=== PATIENT | female | born 1985 | race Caucasian/White ===

== ENCOUNTER 2019-12-17 19:53 | Emergency (ER) | payer OTHER ==
[~2019-12-17] VITALS: Ht 165.1 cm; Wt 68.0 kg
--- NOTE | 2019-12-17 20:56 | NUR ---
poison control case# [id number] recommends cmp, blood alcohol, watch for 6 hours.
[2019-12-17 20:59] LABS: ALKALINE PHOSPHATASE 46 IU/L (46-116); ASPARTATE AMINO TRANSFERASE 13 U/L (10-37); BILIRUBIN,TOTAL 0.3 MG/DL (0.1-1.0); BLOOD UREA NITROGEN 0 MG/DL (7-18); ETHANOL 0.133 GM/DL (0.0-0.010); TOTAL CARBON DIOXIDE 17.7 MMOL/L (24-32)
[2019-12-17 21:14] LABS: BASOPHILS # (AUTO) 0.1 X10'3 (0-0.2); BASOPHILS % (AUTO) 0.7 % (0-1); EOSINOPHILS % (AUTO) 0.1 % (0-6); HEMATOCRIT 38.6 % (35.0-45.0); HEMOGLOBIN 12.8 g/dl (12.0-16.0); LYMPHOCYTES # (AUTO) 1.6 X10'3 (1.1-4.8); LYMPHOCYTES % (AUTO) 19.5 % (21-51); MEAN CORPUSCULAR HEMOGLOBIN 30.6 PG (27.0-31.0); MEAN CORPUSCULAR HGB CONC 33.1 g/dL (33.0-36.5); MEAN CORPUSCULAR VOLUME 92.3 FL (78-98); MEAN PLATELET VOLUME 8.9 FL (7.4-10.4); MONOCYTES # (AUTO) 0.7 X10'3 (0-0.9); MONOCYTES % (AUTO) 8.3 % (2-12); NEUTROPHILS # (AUTO) 5.8 X10'3 (1.8-7.7); NEUTROPHILS % (AUTO) 71.4 % (42-75); PLATELET COUNT 252 X10'3 (140-440); RED BLOOD COUNT 4.18 X10'6 (4.20-5.60); RED CELL DISTRIBUTION WIDTH 13.6 % (11.5-14.5); WHITE BLOOD COUNT 8.2 X10'3 (4.5-11.0)
[2019-12-17 21:18] LABS: URINE HCG NEGATIVE (NEG)
[2019-12-17 21:20] LABS: ALANINE AMINOTRANSFERASE 11 U/L (12-78); ALBUMIN 3.7 G/DL (3.4-5.0); ALBUMIN/GLOBULIN RATIO 1.1 (1.1-1.5); ANION GAP 15 (8-16); CALCIUM 7.9 MG/DL (8.5-10.1); CHLORIDE 109 MMOL/L (99-107); CREATININE 0.95 MG/DL (0.40-0.90); GLUCOSE 127 MG/DL (70-104); SODIUM 142 MMOL/L (135-145); eGFR 67 ML/MIN
[2019-12-17 21:24] LABS: ACETAMINOPHEN < 2.0 UG/ML (10-30)
[2019-12-17 21:25] LABS: URINE AMPHETAMINE SCREEN NEGATIVE (Neg); URINE BARBITUATE SCREEN NEGATIVE (Neg); URINE BENZODIAZEPINES SCREEN NEGATIVE (Neg); URINE CANNABINOID SCREEN NEGATIVE (Neg); URINE COCAINE SCREEN NEGATIVE (Neg); URINE METHADONE SCREEN NEGATIVE (Neg); URINE OPIATE SCREEN NEGATIVE (Neg); URINE PHENCYCLIDINE SCREEN NEGATIVE (Neg)
[2019-12-17 21:28] LABS: POTASSIUM 2.9 MMOL/L (3.5-5.1)
--- NOTE | 2019-12-17 21:39 | NUR ---
call mom when discharged [phone]
[2019-12-17] MEDS ORDERED: potassium Cl 10 mEq/100mL bag IV ONE (21:50)
[2019-12-17] MEDS ORDERED: normal saline 1000ml 1,000 ML IV ONE (21:50)
[2019-12-17] MEDS ORDERED: potassium Cl 20 mEq SR tablet PO ONE (21:50)
[2019-12-17] MEDS ORDERED: BUSP10TA11 PO (23:31)
[2019-12-17] MEDS ORDERED: THY15T PO (23:32)
--- NOTE | 2019-12-18 00:29 | NUR ---
UPDATED POISON CONTROL, THEY ARE CLOSING THE CASE.
[2019-12-18] MEDS ORDERED: magnesium oxide 400mg tablet PO ONE (01:15)
--- NOTE | 2019-12-18 06:15 | NUR ---
Pt VSS, and medically cleared for Mental Health evaluation. Packet sent to [facility]. PT has been resting quietly and is cooperative when interacting with staff.
--- NOTE | 2019-12-18 06:39 | NUR ---
Pt mopved from ER bed 14 into Overflow bed 21.
--- NOTE | 2019-12-18 06:43 | NUR ---
Pt awake, requesting phone. Stated to pt that she is able to make phone calls at 0800.
--- NOTE | 2019-12-18 07:15 | NUR ---
Pt asked what time she was able to go home. Explained 179 hold to pt, and informed her that [facility] will be here to speak with her this morning. Pt tearful but understanding. Asked again to use phone, which I reminded her would be available at 0800.
--- NOTE | 2019-12-18 09:00 | NUR ---
Pt eating breakfast at bedside
--- NOTE | 2019-12-18 11:28 | NUR ---
Pt sitting up in bed, alert and cooperative. Using phone at this time.
[2019-12-18 12:42] LABS: ALBUMIN 3.7 G/DL (3.4-5.0); ANION GAP 8 (8-16); BLOOD UREA NITROGEN 6 MG/DL (7-18); BUN/CREATININE RATIO 8.1 (6.6-38.0); CHLORIDE 108 MMOL/L (99-107); CREATININE 0.74 MG/DL (0.40-0.90); GLUCOSE 96 MG/DL (70-104); POTASSIUM 3.6 MMOL/L (3.5-5.1); SODIUM 140 MMOL/L (135-145); TOTAL CARBON DIOXIDE 23.6 MMOL/L (24-32); eGFR 90 ML/MIN
[2019-12-18 12:47] LABS: CALCIUM 8.6 MG/DL (8.5-10.1)
--- NOTE | 2019-12-18 12:57 | NUR ---
Pt resting comfortably, talking on phone.
--- NOTE | 2019-12-18 14:25 | NUR ---
MED REC COMPLETED, SIGNED BY DR ABDALLA, AND FAXED TO PHARM
[2019-12-18] MEDS: busPIRone 5mg tablet PO SCH ×2 (15:32→20:00)
--- NOTE | 2019-12-18 15:47 | NUR ---
Pt lying on her R side, appears to be resting comfortably. Pt has been tearful and upset since being told that she was being placed on a hold approx 2 hours ago.
--- NOTE | 2019-12-18 17:13 | NUR ---
Pt some what anxious, tossing and turning in her gurney; television brought out.
--- NOTE | 2019-12-18 17:43 | NUR ---
PT USING THE PHONE. INFORMED TO KEEP HER CONVERSIONS TO 20 MIN SHE WAS CONTINULY ON THE PHONE THIS AM THE BATTERY .
--- NOTE | 2019-12-18 18:03 | NUR ---
Pt spoke to family on phone. Now resting comfortably, lying on her L side, watching television.
--- NOTE | 2019-12-18 19:30 | NUR ---
recieved report, assumed care, pt. resting in bed, rr even and non-labored.
--- NOTE | 2019-12-19 03:26 | NUR ---
pt resting quietly with eyes closed. rr even and non-labored.
--- NOTE | 2019-12-19 06:30 | NUR ---
pt is sleeping
--- NOTE | 2019-12-19 07:30 | NUR ---
pt is awake. pt ambulated to bathroom
[2019-12-19] MEDS: thyroid, pork 30mg tablet PO SCH (07:37)
[2019-12-19] MEDS: busPIRone 5mg tablet PO SCH ×2 (07:37→20:02)
--- NOTE | 2019-12-19 08:40 | NUR ---
pt is talking on the phone to a friend
--- NOTE | 2019-12-19 09:00 | NUR ---
pt is resting in her room no issues.
--- NOTE | 2019-12-19 10:00 | NUR ---
pt is resting in her room no issues.
--- NOTE | 2019-12-19 11:00 | NUR ---
pt is resting in her room no issues.
--- NOTE | 2019-12-19 12:00 | NUR ---
pt is resting in her room no issues.
--- NOTE | 2019-12-19 13:00 | NUR ---
pt is resting in her room no issues.
--- NOTE | 2019-12-19 14:00 | NUR ---
pt is resting in her room no issues.
--- NOTE | 2019-12-19 15:00 | NUR ---
pt is resting in her room no issues.
--- NOTE | 2019-12-19 16:00 | NUR ---
pt is resting in her room no issues.
--- NOTE | 2019-12-19 17:00 | NUR ---
pt is resting in her room no issues.
--- NOTE | 2019-12-19 18:15 | NUR ---
Recieved report, assumed care. pt. sitting up in bed quietly.
--- NOTE | 2019-12-19 19:02 | NUR ---
More food brought to the floor by dietary. Pt. ate additional soup and cake. Talking on phone.
--- NOTE | 2019-12-19 23:03 | NUR ---
Pt. in bed, sleeping/resting with eyes closed. Even chest rise apparent. Appears to be comfortable.
--- NOTE | 2019-12-19 23:16 | NUR ---
pt laying with eyes closed, rr even and non-labored.
--- NOTE | 2019-12-20 04:54 | NUR ---
patient sleeping undisturbed
--- NOTE | 2019-12-20 05:21 | NUR ---
patient sleeping undisturbed
[2019-12-20] MEDS: busPIRone 5mg tablet PO SCH ×2 (07:31→20:20)
[2019-12-20] MEDS: thyroid, pork 30mg tablet PO SCH (07:31)
--- NOTE | 2019-12-20 08:17 | NUR ---
Pt has been up, ate breakfast and made phone call. Pt now quietly resting in bed. Pt remains calm and cooperative and denies needs.
[2019-12-20 13:59] LABS: CLARITY,URINE SLIGHTLY CLOUDY (Clear); COLOR,URINE STRAW (Yellow); GLUCOSE, URINE NEGATIVE (Neg); KETONES,URINE 15 mg/dl (Neg); LEUKOCYTE ESTERASE ,URINE NEGATIVE (Neg); NITRITES, URINE NEGATIVE (Neg); OCCULT BLOOD,URINE SMALL (Neg); PROTEIN,URINE NEGATIVE (Neg); UROBILINOGEN,URINE 0.2 E.U/dL (0.2-1.0)
[2019-12-20 14:03] LABS: UA COLLECTION TYPE CLN CATCH MIDSTREAM
[2019-12-20 14:05] LABS: BACTERIA,URINE FEW /HPF (Neg); MUCUS STRANDS MODERATE /LPF (Neg); RBC,URINE 0-2 /HPF (0-2); SQUAMOUS EPITHELIAL CELL,UR MANY /LPF (FEW); WBC,URINE 0-4 /HPF (0-4)
--- NOTE | 2019-12-20 15:00 | NUR ---
Obtained phone numbers for [facility] for pt, phone given and pt attempting to make appt. right now
[2019-12-20 18:06] VITALS: BP 126/69
== END 2019-12-20 21:22 ==
LOC: ER 19:54
DX: T43.592A Poisoning by other antipsychotics and neuroleptics, intentional self-harm, initial encounter (principal); F10.129 Alcohol abuse with intoxication, unspecified; E87.6 Hypokalemia; F32.9 Major depressive disorder, single episode, unspecified; Z88.5 Allergy status to narcotic agent; Z79.899 Other long term (current) drug therapy; Y92.89 Other specified places as the place of occurrence of the external cause; Y90.0 Blood alcohol level of less than 20 mg/100 ml
CPT/HCPCS: 36415; 80048; 80053; 80305; 80320; 80329; 81001; 81025; 84132; 85025; 93005; 96365; 96366; 99285; J3480; J7030

== ENCOUNTER 2019-12-20 18:53 | Inpatient (IN) | payer BC, OTHER ==
[~2019-12-20] VITALS: Ht 167.6 cm; Wt 64.8 kg
[~2019-12-20 18:53] MED LIST: BUSP10TA11 PO; THY15T PO
[2019-12-20 21:30] VITALS: BP 122/77
[2019-12-20] MEDS ORDERED: acetaminophen 325mg tablet PO PRN ×2 (21:55)
[2019-12-20] MEDS ORDERED: mag hydrox/Alum hydrox/simeth 30ml oral suspension PO PRN (21:55)
[2019-12-20] MEDS ORDERED: magnesium hydroxide 30ml (MOM) UD suspension PO PRN (21:55)
[2019-12-20] MEDS ORDERED: loperamide 2mg capsule PO PRN (21:55)
[2019-12-20] MEDS ORDERED: LORazepam 1 MG tablet PO PRN (22:00)
[2019-12-20] MEDS ORDERED: traZODone 50mg tablet PO PRN (22:00)
--- NOTE | 2019-12-21 03:44 | NUR ---
ADMIT NOTE: Audra Legal hold: 5150 Client on involuntary status for DTS Why they are here: Pt attempted suicide by taking 20-30 buspar pills while intoxicated. She requested her mother call 911 once the medication effects began to take place, and was subsequently put on a hold. Her mother and are concerned she will attempt to harm herself should she return home. Hx: She has a hx of depression, PTSD, and anxiety. Pt states she is r/o bipolar and JOESPH. 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 Pt has attempted to kill herself once before when she was 16 yo I wanted to then, unlike this time. I was getting as many and whatever pills I could find when I OD. Medical Hx: Hashimotos, Scoliosis, Broke bilateral wrists as a child, hypoglycemic episode, bradycardic episode Assessment What has happened this shift: Pt admitted to floor at 2130 via [employer], Trevon and security guards. Pt belongings inventoried, paperwork completed, skin check performed, and additional admit assessments including physical and vitals performed. Pt ate a snack and showered. She is currently in her period; supplied pt with 3 pads (only available stock) as she does not use tampons. Pt is open to the admit process, answering questions frankly. She is denying SI stating, I get stressed and will drink to cope and make poor decisions. But I didnt want to kill myself, thats why I had my mom call 911. I have my children to live for. Pt states this year has been difficult due to the pandemic, school for her children regarding the pandemic (especially her high functioning autistic daughter), marital discord with her (its been on going, he isnt around a lot due to his job as a endoscopy support specialist and he drinks when he is home. We have discussed therapy in the past but nothing came of it.) Pt states work is an additional stressor as she has been on leave then she recently went back and a pt fell when she went to use the restroom (I didnt tell anyone I was using the restroom, and Im already in a tough position there.) Pt has been going to therapy and recently wanted to increase her weekly visits because I knew I wasnt doing well. My therapist says I have self-destructive behavior, like with this drinking. I would like to do an alcohol recovery program but not AA (her father was a former alcoholic who adhered to AA) because I know about that and it doesnt really work for me. But I dont know what my insurance will cover for programs and I cant afford something expensive. Pt states brain spotting has worked for her in the past, which is why she was trying to increase her therapy dates. I also recently got on Buspar because of my racing thoughts, I might have JOESPH. But I dont take Buspar when I drink (except for recent SA). I was prescribed Cymbalta, too, but havent taken that because I am in the process of getting my genetics done to see which psych medications work best for me. Raine taken, Celexa, or something when I was younger and it made me stay up all night. They thought I was maybe Bipolar in the past, and I know they arent supposed to take antidepressants so Im hesitant. Pt states her mood worsens significantly the week before her period starts thats when it is the worst and Im really on edge. Pt denies all signs and symptoms, stating she is depressed only because I am on a hold and worried about losing my job. I am already getting the help I need outside through appointments. This RN discussed SA being a cry for help even it pt is stating she did not want to outright kill herself, pt shrugged and acknowledged the above stressors as being the main issue. I just need to not drink. Pt seemed interested in discussing medication and her symptoms regarding mood near her menstrual cycle and mental health hx to have a better understanding of a treatment that would be best for her. S/I, H/I: Denies SI, stating It is only when intoxicated; I didnt really want to kill myself that is why I asked my mom to call 911. A/VH: Denies Sleep: See sleep assessment, states she does not have difficulty falling asleep ADL's: Independent Group attendance: N/A Were meds taken: N/A Any med S/E: None noted or reported. Mental Status Exam Appearance: Freshly showered, wearing unit scrubs and nonskid socks Eye contact: Good. Behavior: Calm and cooperative with admit process, took a shower Speech: Clear, audible Mood: I feel fine but I guess depressed because I am still here and on a hold Affect: Restricted Thought process: Linear Thought Content: worried about her job regarding the 5150, wanting to discharge at the end of her hold Cognition: A/Ox4 Insight: Fair to good Judgment: Fair Interventions PRN's used: None Therapeutic interventions: 1:1 assessment, establishment of rapport, active listening, therapeutic conversation, medication administration/education/monitoring, encouragement to attend groups, Q 15 minute safety checks. Restraints/seclusion/emergency medication: None. Justification of Continued Inpatient Treatment: Pt needs crisis stabilization with medication management and monitoring in a safe and therapeutic environment
[2019-12-21] MEDS ORDERED: thyroid, pork 30mg tablet PO SCH (07:30)
[2019-12-21] MEDS: busPIRone 5mg tablet PO SCH ×2 (07:46→20:24)
--- NOTE | 2019-12-21 10:00 | NUR ---
Group Therapy: Process Group This Clinicians goals for this process group were as follows: (1) Ask scaling questions about Patients current anxiety, depression, and irritability symptoms as a check-in. (2) Share with Patients psychoeducation about the importance of being able to identify safe, and supportive people who can assist them with their mental and emotional needs. (3) Share psychoeducation on interpersonal boundaries and considerations to assist Patients in developing the ability to discern which groups and individuals will be helpful in assisting them during times of emotional escalation and crisis. (4) Engage Patients in discussion of the topics discussed within the group milieu. Patient identified experiencing the following levels of anxiety, depression, and anger/irritability while present in the group milieu (0-low; 10-High). Anxiety: 2/10 Depression: 2/10 Anger/irritability: 0/10 Patient presented as properly oriented x4 during the process group. Patient was dressed in [facility] scrubs within the milieu. Psychomotor activity was unremarkable. Patient's thought content was clear, and concrete. Patient's thought process was clear, coherent, and linear. This Clinician did not observe Patient responding to any internal stimuli during session. The rate, latency, and tone of Patients speech was within normal limits. Patient maintained regular eye contact with this Clinician. Patient presented in calm euthymic mood, with congruent affect during the process group. Patient presented as open and cooperative, and was verbally engaged and nonobtrusive within the group milieu. Per this Clinician's impression, Patient demonstrated understanding of interpersonal boundaries and the [place] of trust as it was outlined by this Clinician as it relates to sharing appropriate information about one's mental health history based upon the level of safety and trust that a person has earned in one's life. On one occasion, another Patient was presenting thoughts that were veering the process group off from its said topic. At that time, Patient verbalized a reframe that showed her understanding of the purpose of the topic being discussed, which this Clinician thought was an appropriate use of a peer-initiated reframe in the group milieu. Tani Padgett MA, EMULSIFICATION OPERATOR Addendum: 12/22/19 at 0807 by Tani LOYD Amended: Links added.
[2019-12-21 10:57] LABS: CHOL/HDL RATIO 2.8 (0.00-4.99); CHOLESTEROL 144 MG/DL (0-200); HDL CHOLESTEROL 52 MG/DL (35-60); LDL CHOLESTEROL 77 MG/DL (50-100); TRIGLYCERIDES 67 MG/DL (20-135)
[2019-12-21 11:01] LABS: HEMOGLOBIN A1C 4.9 % (4.5-6.2)
[2019-12-21] MEDS ORDERED: atomoxetine 25mg capsule PO ONE (12:20)
--- NOTE | 2019-12-21 15:06 | NUR ---
Nursing Progress Note: Audra Nallely Legal hold: [id number] Client on involuntary status for DTS Why they are here: Pt attempted suicide by taking 20-30 Buspar pills while intoxicated. She requested her mother call 911 once the medication effects began to take place, and was subsequently put on a hold. Her mother and are concerned she will attempt to harm herself should she return home. MH Hx: She has a hx of depression, PTSD, and anxiety. Pt states she is r/o bipolar and JOESPH. 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 Pt has attempted to kill herself once before when she was 16 yo I wanted to then, unlike this time. I was getting as many and whatever pills I could find when I OD. Medical Hx: Hashimotos, Scoliosis, Broke bilateral wrists as a child, hypoglycemic episode, bradycardic episode Assessment What has happened this shift: Patient was asleep at change of shift and up before breakfast. Patient found RN and said she would like her thyroid medication at 0700 so she is able to eat at 0800. RN spoke to Dr Smart who approved change. Patient denies suicidal/homicidal ideation. Patient states she drinks about once a week for the last few months. Patient used to drink weekly. Patient has a lot of anxiety. RN walked into patient's room and patient laying in bed with the light on after group. Patient stated she won't sleep during the day because that is a sign of depression. Patient went to art group but said it was just okay. RN said Really?. Patient said she knows more than these people. RN advised patient to get out of it what she can and take advantage of the therapy and being able to rest. Patient started Strattera today for possible ADHD which will help patient focus. Dr Smart to also up her dose of Buspar. Patient is friendly and social. Continue to monitor. S/I, H/I: Denies A/VH: Denies Sleep: Patient in her room off and on but no naps ADL's: Independent Group attendance: yes Were meds taken: yes Any med S/E: None noted or reported. Mental Status Exam Appearance: wearing unit scrubs and nonskid socks, Hair up in a bun Eye contact: Good. Behavior: Calm and cooperative, talkative with staff Speech: Clear, audible Mood: Pleasant Affect: Restricted Thought process: Linear Thought Content: Going home and getting back to her job. Cognition: A/Ox4 Insight: Fair Judgment: Fair Interventions PRN's used: None Therapeutic interventions: 1:1 assessment, establishment of rapport, active listening, therapeutic conversation, medication administration/education/monitoring, encouragement to attend groups, Q 15 minute safety checks. Restraints/seclusion/emergency medication: None. Justification of Continued Inpatient Treatment: Pt needs crisis stabilization with medication management and monitoring in a safe and therapeutic environment
[2019-12-21 20:00] VITALS: BP 118/64
--- NOTE | 2019-12-22 01:05 | NUR ---
Nursing Progress Note: Audra Nallely Legal hold: 5150 Client on involuntary status for DTS Why they are here: Pt attempted suicide by taking 20-30 Buspar pills while intoxicated. She requested her mother call 911 once the medication effects began to take place, and was subsequently put on a hold. Her mother and are concerned she will attempt to harm herself should she return home. MH Hx: She has a hx of depression, PTSD, and anxiety. Pt states she is r/o bipolar and JOESPH. 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 Pt has attempted to kill herself once before when she was 16 yo I wanted to then, unlike this time. I was getting as many and whatever pills I could find when I OD. Medical Hx: Hashimotos, Scoliosis, Broke bilateral wrists as a child, hypoglycemic episode, bradycardic episode Assessment What has happened this shift: Pt in room for part of the shift, reading and talking to family on the phone. States she had an okay day, but was hoping to create a vision board during art group today as she finds them useful. Pt denies all symptoms, insisting that she did truly want to kill herself. Pt states she needs to stop drinking to cope with stress and increase therapy days as this really helped her stay level and manage her anxiety in the past. She says the Buspar is helpful as well she just needs to be consistent about taking it. Pt and this RN created vision boards together, during which time the pt expressed her difficulty feeling emotions and being vulnerable. She doesn't like when people dote on her and has a hard time processing emotions due to past trauma. Pt states she is working on this with her therapist, whom she has a good rapport, and knows that she really needs to increase her visits and "put in the hard work because no one can make the change but yourself." Pt seems to have good insight about her anxiety but the drunken OD feels "like it's not really me, I don't want to really ." Pt reiterates her racing thoughts can get bad and she just wants to ease the anxiety that becomes heightened with various stressors. Pt acknowledges that her recent attempt was more in line with a "cry for help" and that she "has a lot of work to put in to improve and change some of her thought pathways to be able to handle stress and cope with anxiety" in conjunction with her prescribed medications. Pt compliant with medication pass and went to sleep after working on her vision board. S/I, H/I: Denies A/VH: Denies Sleep: See Sleep Assessment; Pt sleeps through the night without difficulty falling asleep ADL's: Independent Group attendance: N/A Were meds taken: yes Any med S/E: None noted or reported. Mental Status Exam Appearance: Clean, wearing unit scrubs and nonskid socks. Hair is brushed and down. Eye contact: Good. Behavior: Cooperative, talking on the phone to her friend and mother, attending snack, creating a vision board with her assigned RN Speech: Clear, audible Mood: Pleasant, Calm Affect: Animated Thought process: Linear Thought Content: Going home and getting back to her job, plans to increase therapist visits and wanting to stop using alcohol as a coping mechanism Cognition: A/Ox4 Insight: Fair to good Judgment: Fair Interventions PRN's used: None Therapeutic interventions: 1:1 assessment, establishment of rapport, active listening, therapeutic conversation, medication administration/education/monitoring, encouragement to attend groups, Q 15 minute safety checks. Restraints/seclusion/emergency medication: None. Justification of Continued Inpatient Treatment: Pt needs crisis stabilization with medication management and monitoring in a safe and therapeutic environment
[2019-12-22] MEDS: thyroid, pork 30mg tablet PO SCH ×2 (07:11→07:30)
[2019-12-22 08:00] VITALS: BP 92/56
[2019-12-22] MEDS: busPIRone 5mg tablet PO SCH (08:46)
[2019-12-22] MEDS: atomoxetine 25mg capsule PO SCH (08:46)
--- NOTE | 2019-12-22 10:00 | NUR ---
Group Therapy: Process Group This Clinicians goals for this process group were as follows: (1) Ask scaling questions about Patients current anxiety, depression, and irritability symptoms as a check-in. (2) Share psychoeducation about automatic thoughts and cognitive distortions. (3) Share psychoeducation on CBT thought-stopping and, thought-reframing. (4) Discuss strategies for identifying negative, unhelpful, and/or irrational thoughts as quickly as possible to avoid unwanted escalation of mental health symptoms. (5) Process Clients thoughts and reflections on this topic within the group milieu. Patient identified experiencing the following levels of anxiety, depression, and anger/irritability while present in the group milieu (0-low; 10-High). Anxiety: 1/10 Depression: 0/10 Anger/irritability: 0/10 Patient presented as properly oriented x4 during the process group. Patient was dressed in green hospital scrubs within the milieu. Psychomotor activity was unremarkable. Patient's thought content was clear, and concrete. Patient's thought process was clear, coherent, and linear. This Clinician did not observe Patient responding to any internal stimuli during session. The rate, latency, and tone of Patients speech was within normal limits. Patient maintained regular eye contact with this Clinician. Patient presented in calm euthymic mood, with congruent affect during the process group. Patient presented as open and cooperative, and was verbally engaged and nonobtrusive within the group milieu. Patient was an active participant in the process group discussion on thinking errors and CBT interventions such as thought-stopping and thought-reframing that one could practice to identify more balanced/helpful/rational thoughts to improve one's mood. This Clinician provided the patients with a hand out on common cognitive distortions. Patient looked at the list of the distortions and stated that she has engaged in, "All of them," at times. Patient assertively presented some counterpoints to another patient who was upset about a situation that he was experiencing. It was this Clinician's impression that her comments were appropriate, productive and insightful in the spirit of promoting insight and productive dialogue between peers in the group milieu. Tani Padgett MA, TERRAZZO FINISHER Addendum: 12/23/19 at 0819 by Tani LOYD Amended: Links added.
--- NOTE | 2019-12-22 17:31 | NUR ---
Nursing Progress Note: Audra Browning Legal hold: 5150 Client on involuntary status for DTS Why they are here: Pt attempted suicide by taking 20-30 Buspar pills while intoxicated. She requested her mother call 911 once the medication effects began to take place, and was subsequently put on a hold. Her mother and are concerned she will attempt to harm herself should she return home. MH Hx: She has a hx of depression, PTSD, and anxiety. Pt states she is r/o bipolar and JOESPH. 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 Pt has attempted to kill herself once before when she was 16 yo I wanted to then, unlike this time. I was getting as many and whatever pills I could find when I OD. Medical Hx: Hashimotos, Scoliosis, Broke bilateral wrists as a child, hypoglycemic episode, bradycardic episode Assessment What has happened this shift: Patient was asleep at change of shift and up before breakfast. Patient is somewhat social. Patient wants out of here. Patient denies suicidal/homicidal ideation and audio/visual hallucinations. Patient spoke to Dr Smart who was supposed to call her . Patient said last time they spoke this afternoon he hadn't called yet. Patient went to both groups today. Patient stated the Strattera made her sleepy and she was hoping she could take it at night. Patient will speak to Dr Smart in the morning. S/I, H/I: Denies A/VH: Denies Sleep: Patient in her room off and on but no naps ADL's: Independent Group attendance: yes Were meds taken: yes Any med S/E: None noted or reported. Mental Status Exam Appearance: wearing unit scrubs and nonskid socks, Hair up in a bun Eye contact: Good. Behavior: Calm and cooperative Speech: Clear, audible Mood: Pleasant Affect: Restricted Thought process: Linear Thought Content: Going home Cognition: A/Ox4 Insight: Fair Judgment: Fair Interventions PRN's used: None Therapeutic interventions: 1:1 assessment, establishment of rapport, active listening, therapeutic conversation, medication administration/education/monitoring, encouragement to attend groups, Q 15 minute safety checks. Restraints/seclusion/emergency medication: None. Justification of Continued Inpatient Treatment: Pt needs crisis stabilization with medication management and monitoring in a safe and therapeutic environment
[2019-12-22 19:35] VITALS: BP 114/70
[2019-12-22] MEDS: busPIRone 15mg tablet PO SCH (19:53)
--- NOTE | 2019-12-22 23:26 | NUR ---
Nursing Progress Note: Audra Browning Legal hold: 5150 Client on involuntary status for DTS Report received from SURJIT Cordova with help from SB[employer] Why they are here: Pt attempted suicide by taking 20-30 Buspar pills while intoxicated. She requested her mother call 911 once the medication effects began to take place, and was subsequently put on a hold. Her mother and are concerned she will attempt to harm herself should she return home. Assessment What has happened this shift: Pt was in her room during shift change. She states that she had a good day but I can hear all the craziness thats going out there so I just have been staying in my room. Pt asks about her hold and at first is a little confused because she thought that it was going to end today since she has been here for 2 days. This RN clarify that the hold is for 72 hours and it should end tomorrow. She was okay with this but is still hoping to discharge early tomorrow. She plans to go back home and she is hopeful that the medication she is taking will help her become more stable. 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 Pt was cooperative for 1:1 physical assessment and took her HS medication. She denies any S/I, H/I, depression and she states that she has a little bit of anxiety but she doesnt need any medication for this. She took all her medication and states that she is feeling dizzy and she believes is due to one of her new medications (Strattera). She was encouraged to come out for snack which she did. She retired to bed and remained isolative for the rest of the evening. Did not required any sleeping aid medication. S/I, H/I: Denies A/VH: Denies Sleep: Currently sleeping, see sleep assessment for total hours ADL's: Independent Group attendance: None during third shift lieutenant Were meds taken: yes Any med S/E: Pt reports feeling dizzy after taking Strattera Mental Status Exam Appearance: Clean, wearing unit scrubs and nonskid socks. Hair is brushed and down. Eye contact: Direct Behavior: Cooperative, isolative, pleasant, goal oriented Speech: Clear, audible Mood: Hopeful, euthymic Affect: Congruent with mood Thought process: Linear Thought Content: Wanting to go back home and make changes on her mental health, work Cognition: A/Ox4 Insight: Fair to good Judgment: Fair Interventions PRN's used: None Therapeutic interventions: 1:1 assessment, establishment of rapport, active listening, therapeutic conversation, medication administration/education/monitoring, encouragement to attend groups, Q 15 minute safety checks. Restraints/seclusion/emergency medication: None. Justification of Continued Inpatient Treatment: Pt needs crisis stabilization with medication management and monitoring in a safe and therapeutic environment
[2019-12-23] MEDS: thyroid, pork 30mg tablet PO SCH (06:56)
[2019-12-23] MEDS: busPIRone 15mg tablet PO SCH ×2 (07:49→20:40)
[2019-12-23] MEDS: atomoxetine 25mg capsule PO SCH (07:49)
[2019-12-23 07:54] VITALS: BP 112/67
--- NOTE | 2019-12-23 08:38 | NUR ---
PSYCHOSOCIAL ASSESSMENT Audra is a 34 y/o female who was placed on 5150 for danger to self after she overdosed on half a bottle of buspar while intoxicated. "I got drunk, I wanted my brain to stop, I wasn't trying to kill myself". She reported buspar helps her with anxiety and she took the remainder of the bottle. She noted there were other medications in the house she could have overdosed on if she had truly wanted to kill herself. She reported she had had a bad day at work. 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 She reported she tends to drink alcohol when stressed and she had been drinking when she overdosed on the buspar. She recently returned to work after being off for 3 months due to stress. She reported increased stress at work due to Covid and outbreak that occurred at her job site. She reported her sister also in September and that her stress leave was extended partly due to this. She returned to work Dec 14 and was placed on initial 5150 on 12/18/19. Audra lives with her , Rafael, with their 2 y/o child. Audra also has a 12 and 15 y/o who spend week on and week off between her house and their father's home. Audra sees a therapist at [facility] and will be seeing a prescriber their as well. HEBER Carson Addendum: 12/23/19 at 0838 by Nancy Rojas SS Amended: Links added.
--- NOTE | 2019-12-23 08:48 | NUR ---
PHONE CALL W/ Audra's , Rafael (ph# [phone]), called and technical report writer returned his call. He requested an update. Apprised him that Audra is getting placed on a [address] Smart wanted to keep her a couple more days. Informed him that Dr Smart stated he would call him later today. Rafael was prepared to pick Audra up today. He seemed to be ok with her staying longer. HEBER Carson
--- NOTE | 2019-12-23 10:00 | NUR ---
Group Therapy: Process Group This Clinicians goals for this process group were as follows: (1) Ask scaling questions about Patients current anxiety, depression, and irritability symptoms as a check-in. (2) Share psychoeducation about self-efficacy, and ego strength. (3) Provide psychoeducation on Lala Drama triangleVictim, Persecutor, Rescuer dynamic. (4) Share psychoeducation on developing positive ego strengthpositive affirmations, positive self-talk, transitioning from a victim of circumstances to a survivor of circumstances. (5) Process Clients thoughts and reflections on this topic within the group milieu. Patient identified experiencing the following levels of anxiety, depression, and anger/irritability while present in the group milieu (0-low; 10-High). Anxiety: 0/10 Depression: 0/10 Anger/irritability: 0/10 Patient presented as properly oriented x4 during the process group. Patient was dressed in [facility] scrubs within the milieu. Psychomotor activity was unremarkable. Patient's thought content was clear, and concrete. Patient's thought process was clear, coherent, and linear. This Clinician did not observe Patient responding to any internal stimuli during session. The rate, latency, and tone of Patients speech was within normal limits. Patient maintained regular eye contact with this Clinician. Patient presented in calm euthymic mood, with congruent affect during the process group. Patient presented as open and cooperative, and was verbally engaged and nonobtrusive within the group milieu. Patient frequently made insightful comments about how people who have low self esteem and low ego strength tend to identify as victims to circumstances and people because they do not feel that they have any power to change their situations for the better. She also stressed the importance of not minimizing compliments that one receives in the spirit of developing positive ego strength, which she believed would make it easier to identify positive affirmations about themselves, because they were not minimizing praise they received. Tani Padgett MA, ACCOUNT DEVELOPER Addendum: 12/24/19 at 0811 by Tani LOYD Amended: Links added.
--- NOTE | 2019-12-23 16:41 | NUR ---
Nursing Progress Note: Audra Browning Legal hold: 0520 Client on involuntary status for DTS Report received from AYDIN Wang with use of SBAR: Why they are here: Pt attempted suicide by taking 20-30 Buspar pills while intoxicated. She requested her mother call 911 once the medication effects began to take place, and was subsequently put on a hold. Her mother and are concerned she will attempt to harm herself should she return home. MH Hx: She has a hx of depression, PTSD, and anxiety. Pt states she is r/o bipolar and JOESPH. 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 Pt has attempted to kill herself once before when she was 16 yo I wanted to then, unlike this time. I was getting as many and whatever pills I could find when I OD. Medical Hx: Hashimotos, Scoliosis, Broke bilateral wrists as a child, hypoglycemic episode, bradycardic episode Assessment What has happened this shift: Received pt awake sitting in rec room. Pt cooperative with am assessment; though, initially was a little guarded and had a flat to suspicious affect. Pt denies suicidal and homicidal thoughts and denies a/v hallucinations. Pt continues to endorse depression, but feels with proper outpt. f/u she can be successful. Pt was looking forward to a possible discharge today. Later, told her he was keeping her on a 14 day hold to further adjust some medications. Pt handled this with maria eugenia and agreement. S/I, H/I: Denies A/VH: Denies Sleep: Patient in her room off and on but no naps ADL's: Independent Group attendance: yes Were meds taken: yes Any med S/E: None noted or reported. Mental Status Exam Appearance: wearing unit scrubs and nonskid socks, Hair up in a bun Eye contact: Good. Behavior: Calm and cooperative Speech: Clear, audible Mood: Pleasant Affect: Restricted Thought process: Linear Thought Content: Going home Cognition: A/Ox4 Insight: Fair Judgment: Fair Interventions PRN's used: None Therapeutic interventions: 1:1 assessment, establishment of rapport, active listening, therapeutic conversation, medication administration/education/monitoring, encouragement to attend groups, Q 15 minute safety checks. Restraints/seclusion/emergency medication: None. Justification of Continued Inpatient Treatment: Pt needs crisis stabilization with medication management and monitoring in a safe and therapeutic environment
[2019-12-23 19:00] VITALS: BP 98/55
[2019-12-23] MEDS: naltrexone 50mg tablet PO SCH (20:40)
--- NOTE | 2019-12-24 00:35 | NUR ---
Nursing Progress Note: Audra Nallely Legal hold: 5250 Client on involuntary status for DTS Report received from SURJIT Hernadez with help from [employer] Why they are here: Pt attempted suicide by taking 20-30 Buspar pills while intoxicated. She requested her mother call 911 once the medication effects began to take place, and was subsequently put on a hold. Her mother and are concerned she will attempt to harm herself should she return home. Assessment What has happened this shift: Pt was in her room talking on the phone. She was for the most part isolative to her room but did come out and grabbed a snack. She also later on came up and requested to know when she will be discharged. She signed her 5250 even though she hopes she wont be here for the 14 days. Clarified with her DrSasha that the plan is for her to me monitored for the effectiveness and side effects of the new medication that she was just started on. She took all her HS medications without any issues. She denies any S/I, H/I, A/VH, depression or anxiety. Pt states that she had a pretty good night sleep. She appear to be minimizing all her mental health symptoms. She states that she just wants to go home and hold her daughter. She also believes that she really doesnt belong here because she observes the behavior of all the other patients here. Just being here is going to make me crazy. Pt talked on the phone for a while longer before retiring to bed. S/I, H/I: Denies A/VH: Denies Sleep: Currently sleeping, see sleep assessment for total hours ADL's: Independent Group attendance: None during manager shift Were meds taken: yes Any med S/E: None reported or observed Mental Status Exam Appearance: Clean, wearing unit scrubs and nonskid socks. Hair is brushed and down. Eye contact: Direct Behavior: Cooperative, guarded, wanting to be discharged Speech: Clear, audible Mood: Upset that she has to stay here longer Affect: Blunted Thought process: Linear Thought Content: Discharge, meds, going back home with her daughter Cognition: A/Ox4 Insight: Fair to good Judgment: Fair Interventions PRN's used: None Therapeutic interventions: 1:1 assessment, establishment of rapport, active listening, therapeutic conversation, medication administration/education/monitoring, encouragement to attend groups, Q 15 minute safety checks. Restraints/seclusion/emergency medication: None. Justification of Continued Inpatient Treatment: Pt needs crisis stabilization with medication management and monitoring in a safe and therapeutic environment
[2019-12-24] MEDS: thyroid, pork 30mg tablet PO SCH (07:27)
[2019-12-24 07:56] VITALS: BP 103/66
[2019-12-24] MEDS: busPIRone 15mg tablet PO SCH ×2 (08:15→20:05)
[2019-12-24] MEDS: atomoxetine 40 MG capsule PO SCH (08:16)
--- NOTE | 2019-12-24 10:00 | NUR ---
Group Therapy: Process Group This Clinicians goals for this process group were as follows: (1) Ask scaling questions about patients current anxiety, depression, and irritability symptoms as a check-in. (2) Share psychoeducation about three rules of brief solution-focused problem-solving: A) Stop doing what clearly isnt working, B) Do something different, C) If the different activity works, then do more of it. If it doesnt work, then go back to principle A). (3) Identify examples of thoughts, activities, and behaviors that people do that no longer work for them, or they create more problems than solutions. (4) Identify examples of thoughts, activities, and behaviors that may help create better emotional/behavioral outcomes and lead to good solutions to problems. (5) Engage patients in discussion of the topics shared within the group milieu. Patient identified experiencing the following levels of anxiety, depression, and anger/irritability while present in the group milieu (0-low; 10-High). Anxiety: 0/10 Depression: 0/10 Anger/irritability: 0/10 Patient presented as properly oriented x4 during the process group. Patient was dressed in nondescript, green hospital scrubs within the milieu. Psychomotor activity was unremarkable. Patient's thought content was clear, and concrete. Patient's thought process was clear, coherent, and linear. This Clinician did not observe Patient responding to any internal stimuli during session. The rate, latency, and tone of Patients speech was within normal limits. Patient maintained regular eye contact with this Clinician. Patient presented in calm euthymic mood, with congruent affect during the process group. Patient presented as open and cooperative, and was verbally engaged and nonobtrusive within the group milieu. Patient arrived to the group milieu approximately 15 minutes after the beginning of the process group. Patient was apologetic for this and told this Clinician that she was not made aware that it was time for group to begin. This Clinician thanked Patient for her participation and thanked her for coming. In the context of strength-based solution-focused problem-solving strategies, Patient reported that she had the problem of "Opening her Mouth," in work-situations and saying things that maybe were not appropriate in the work milieu. Initially this Clinician proposed the solution of reflecting on how what she might say could be interpreted before saying it. Patient responded that she has a difficult time, "Sitting on" her feelings. However, she was open to the suggestion that she may make attempts to refrain from sharing things that she might, "Blurt out," then later share her frustrations with a friend and/or family member to reduce the emotional pressure that she sometimes experiences by not expressing her feelings. Tani Padgett MA, TOBACCO DIPPER Addendum: 12/24/19 at 1152 by Tani Padgett SS Amended: Links added.
--- NOTE | 2019-12-24 12:29 | NUR ---
Eating better, PO Intake improved from admission from 25-49% PO Intake to 75-100% PO intake for two days. Meeting needs. No nutrition problem. Will follow. Recommend: 1. continue regular diet 2. weekly weights Addendum: 12/24/19 at [address] Amended: Links added.
--- NOTE | 2019-12-24 17:39 | NUR ---
Nursing Progress Note: Audra Browning Legal hold: 5150 Client on involuntary status for DTS Report received from Razia Schuster RN with use of SBAR: Why they are here: Pt attempted suicide by taking 20-30 Buspar pills while intoxicated. She requested her mother call 911 once the medication effects began to take place, and was subsequently put on a hold. Her mother and are concerned she will attempt to harm herself should she return home. MH Hx: She has a hx of depression, PTSD, and anxiety. Pt states she is r/o bipolar and JOESPH. 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 Pt has attempted to kill herself once before when she was 16 yo I wanted to then, unlike this time. I was getting as many and whatever pills I could find when I OD. Medical Hx: Hashimotos, Scoliosis, Broke bilateral wrists as a child, hypoglycemic episode, bradycardic episode Assessment What has happened this shift: Received awake in hallway. Pt had bright affect and stated she felt good and ready for discharge. Pt anxious wanting to know when she will be leaving. Dr. Smart met with her early and she was ok to go tomorrow which apparently they agreed upon. Pt denies suicidal thoughts and homicidal thoughts. Pt remained appropriate all shift. S/I, H/I: Denies A/VH: Denies Sleep: Patient in her room off and on but no naps ADL's: Independent Group attendance: yes Were meds taken: yes Any med S/E: None noted or reported. Mental Status Exam Appearance: wearing unit scrubs and nonskid socks, Hair up in a bun Eye contact: Good. Behavior: Calm and cooperative Speech: Clear, audible Mood: Pleasant Affect: Restricted Thought process: Linear Thought Content: Going home Cognition: A/Ox4 Insight: Fair Judgment: Fair Interventions PRN's used: None Therapeutic interventions: 1:1 assessment, establishment of rapport, active listening, therapeutic conversation, medication administration/education/monitoring, encouragement to attend groups, Q 15 minute safety checks. Restraints/seclusion/emergency medication: None. Justification of Continued Inpatient Treatment: Pt needs crisis stabilization with medication management and monitoring in a safe and therapeutic environment
[2019-12-24 19:46] VITALS: BP 101/59
[2019-12-24] MEDS: naltrexone 50mg tablet PO SCH (20:05)
--- NOTE | 2019-12-25 02:16 | NUR ---
Nursing Progress Note: Audra Browning Legal hold: 5250 Client on involuntary status for DTS Report received from SURJIT Hernadez with help from IGOR Why they are here: Pt attempted suicide by taking 20-30 Buspar pills while intoxicated. She requested her mother call 911 once the medication effects began to take place, and was subsequently put on a hold. Her mother and are concerned she will attempt to harm herself should she return home. Assessment What has happened this shift: Pt was in her room during shift change. She is very hopeful that she will be going home early tomorrow, she wanted to call her and let him know what time to pick her up. 1:1 was performed at bedside which she was cooperative with. She also took all her HS medications without any issues. Actually asked for them early as she states that she wants to go to sleep early. She denies any S/I, H/I, or anxiety, but seems to be still somewhat irritable that she didnt leave earlier. She was pretty much isolative again this evening as she was not observed socializing with other peers. S/I, H/I: Denies A/VH: Denies Sleep: Currently sleeping, see sleep assessment for total hours ADL's: Independent Group attendance: None during night club manager Were meds taken: yes Any med S/E: None reported or observed Mental Status Exam Appearance: Clean, wearing unit scrubs and nonskid socks. Hair appears messy and unkempt Eye contact: Direct Behavior: Cooperative, guarded, withdrawn Speech: Clear, audible Mood: Tired, irritable Affect: Appropriate Thought process: Linear Thought Content: Discharge, work, meds, Cognition: A/Ox4 Insight: Fair to good Judgment: Fair Interventions PRN's used: None Therapeutic interventions: 1:1 assessment, establishment of rapport, active listening, therapeutic conversation, medication administration/education/monitoring, encouragement to attend groups, Q 15 minute safety checks. Restraints/seclusion/emergency medication: None. Justification of Continued Inpatient Treatment: Pt needs crisis stabilization with medication management and monitoring in a safe and therapeutic environment
[2019-12-25] MEDS: thyroid, pork 30mg tablet PO SCH (06:55)
[2019-12-25 08:00] VITALS: BP 111/69
[2019-12-25] MEDS ORDERED: ATOM40CA PO (08:07)
[2019-12-25] MEDS ORDERED: NALT50TA PO (08:07)
[2019-12-25] MEDS ORDERED: BUS15T PO (08:07)
[2019-12-25] MEDS: atomoxetine 40 MG capsule PO SCH (08:41)
[2019-12-25] MEDS: busPIRone 15mg tablet PO SCH (08:41)
--- NOTE | 2019-12-25 09:44 | NUR ---
Discharge Note: Pt dc'd at 0940. [facility] and child. Pt plans to dc home with family via personal vehicle with her . Pt's valuables and belongings, including medications were inventoried and returned to pt. Pt was happy to dc home and felt like she has good support from her familly. Pt stated that she has improved since being admitted and verbalized understanding of follow up instructions. Pt given prescriptions for medications.
== END 2019-12-25 09:40 | disposition home or self-care (01) | DRG 881 ==
LOC: ED HOLD 19:54 → ADULT MH 21:30
PROVIDERS: ADMIT Psychiatry & Neurology Psychiatry; ATTEND Psychiatry & Neurology Psychiatry
DX: F32.9 Major depressive disorder, single episode, unspecified (principal); T43.591A Poisoning by other antipsychotics and neuroleptics, accidental (unintentional), initial encounter; E06.3 Autoimmune thyroiditis; F10.10 Alcohol abuse, uncomplicated; I10 Essential (primary) hypertension; F41.1 Generalized anxiety disorder; F90.2 Attention-deficit hyperactivity disorder, combined type; Y92.89 Other specified places as the place of occurrence of the external cause; Z81.1 Family history of alcohol abuse and dependence
CPT/HCPCS: 36415; 80061; 83036; 84443; 87081